=== PATIENT | female | born 1975 | race Caucasian/White ===

== ENCOUNTER 2017-06-30 17:46 | Emergency (ER) | payer SELFPAY ==
[2017-06-30 17:59] VITALS: BP 140/87; PULSE 88; RESP 18; TEMP 98.7; O2SAT 98
[2017-06-30] MEDS ORDERED: Naproxen 550 mg Tab PO STA (18:21)
--- NOTE | 2017-06-30 18:25 | ED PDOC ---
Arrival/HPI - General Chief Complaint: Dental Pain Time Seen by Provider: 06/30/17 17:54 Historian: Patient - History of Present Illness Narrative History of Present Illness (Text): 06/30/17 18:22 This 42 yo female with pmh dental pain, htn, allergic to Cleocin, presents to this ED c/o left lower dental pain, and facial swelling x 1 day. Patient denies sore throat, sob, cp, dysphagia, BAHENA, fever, or dizziness. Time/Duration: Other (see hpi) Context: Home Past Medical History - Provider Review Nursing Documentation Reviewed: Yes - Cardiac Hx Hypertension: Yes - Pulmonary Hx Asthma: Yes - Psychiatric Hx Substance Use: No - Anesthesia Hx Anesthesia: No Family/Social History - Physician Review Nursing Documentation Reviewed: Yes Family/Social History: Other (noncontributory) Smoking Status: Never Smoked Hx Alcohol Use: No Hx Substance Use: No Allergies/Home Meds Allergies/Adverse Reactions: Allergies Unobtainable Allergy (Verified 06/30/17 18:04) Review of Systems - Review of Systems Constitutional: Normal. absent: Fatigue, Weight Change, Fevers, Night Sweats Eyes: Normal ENT: Other (dental pain). absent: TMJ Pain, Voice Changes, Sore Throat, Rhinorrhea, Epistaxis, Sinus Congestion Respiratory: Normal. absent: SOB, Cough Cardiovascular: Normal Gastrointestinal: Normal Genitourinary Female: Normal Musculoskeletal: Normal Skin: Normal Neurological: Normal. absent: Headache, Dizziness Endocrine: Normal Hemo/Lymphatic: Normal Psychiatric: Normal Physical Exam Vital Signs Temp Pulse Resp BP Pulse Ox 06/30/17 17:58 98.7 F 88 18 140/87 98 Temperature: Afebrile Blood Pressure: Normal Pulse: Regular Respiratory Rate: Normal Appearance: Positive for: Well-Appearing, Non-Toxic, Comfortable Pain Distress: None Mental Status: Positive for: Alert and Oriented X 3 - Systems Exam Head: Present: Atraumatic, Normocephalic Pupils: Present: PERRL Extroacular Muscles: Present: EOMI Conjunctiva: Present: Normal Ears: Present: Normal, NORMAL TM Mouth: Present: Moist Mucous Membranes, Normal Lips, Normal Tounge, Other (Left lower posterior molar cavity. (+) mild tenderness over left lower premolar gum on palaption. No dental abscess. No facial erythema. (+) positive left submandibular reactive lyph node.). No: Drooling, Trismus Pharnyx: Present: Normal. No: ERYTHEMA, EXUDATE, TONSILS ENLARGED Neck: Present: Normal Range of Motion Upper Extremity: Present: Normal Inspection, Normal ROM Lower Extremity: Present: Normal Inspection, Normal ROM Neurological: Present: GCS=15, CN II-XII Intact, Speech Normal, Motor Func Grossly Intact, Normal Sensory Function, Normal Cerebellar Funct, Gait Normal, Memory Normal Skin: Present: Warm, Dry, Normal Color. No: Rashes Psychiatric: Present: Alert, Oriented x 3, Normal Insight, Normal Concentration Medical Decision Making ED Course and Treatment: 06/30/17 18:26 Re-evaluation. Patient feels better. Discussed results and plan with patient who expresses understanding. All questions answered and there is agreement with the plan to discharge home with instructions. Patient stable for discharge. Return if symptoms persist or worsen. Patient was recommended to f/u dentist in 1-2 days. Take medication with food as instructed. to return to emergency if symptoms worsen. Re-evaluation Time: 18:27 Reassessment Condition: Re-examined, Improved Disposition/Present on Arrival - Present on Arrival Any Indicators Present on Arrival: No History of DVT/PE: No History of Uncontrolled Diabetes: No Urinary Catheter: No History of Decub. Ulcer: No History Surgical Site Infection Following: None - Disposition Have Diagnosis and Disposition been Completed?: Yes Diagnosis: Infected dental caries, Pain, dental Disposition Time: 18:28 Patient Plan: Discharge Condition: GOOD Discharge Instructions (ExitCare): Dental Caries (ED), Toothache (ED) Additional Instructions: Call private doctor for follow up visit in 1-2 days. Also call dentist for revaluation in 1-2 days. take medication as instructed. Have your doctor recheck you blood pressure. return to emergency if symptoms worsen. Prescriptions: Amoxicillin [Amoxil 500 mg Cap] 500 mg PO TID #30 cap Chlorhexidine 0.12% [Peridex] 15 ml PO BID #1 bottle Famotidine [Pepcid] 40 mg PO DAILY #10 tablet Naproxen 500 mg PO BID PRN #14 tab PRN Reason: Pain, Severe (8-10) Referrals: [facility] [Outside] - Follow up with primary [facility] [Outside] - Follow up with primary Forms: [employer] (Lithuanian), WORK NOTE
== END 2017-06-30 18:45 | disposition home or self-care (01) ==
LOC: ED 17:46
DX: K02.9 Dental caries, unspecified (principal); I10 Essential (primary) hypertension

== ENCOUNTER 2017-11-23 21:19 | Emergency (ER) | payer SELFPAY ==
[2017-11-23 21:36] VITALS: TEMP 98
--- NOTE | 2017-11-23 21:53 | ED PDOC ---
Arrival/HPI - General Chief Complaint: Syncope Time Seen by Provider: 11/23/17 21:21 Historian: Patient - History of Present Illness Narrative History of Present Illness (Text): 11/23/17 21:47 42 year old female, with past medical history of hypertension, presents to the Emergency department accompanied by family complaining of witnessed syncopal episode at home prior to arrival. According to the family present, patient was upset at her daughters running after them when she collapsed and lost consciousness. When questioned as why patient was running, daughter states "it is family business and cannot say". Patient is currently awake.Patient with no chest pain or shortness of breath. Patient denies any fever, chills, nausea, vomiting, abdominal pain or any other complaints.No hx. of any SI or HI. Time/Duration: Prior to Arrival Symptom Onset: Gradual Symptom Course: Improving Activities at Onset: Other (Running) Context: Home Past Medical History - Provider Review Nursing Documentation Reviewed: Yes - Infectious Disease Hx of Infectious Diseases: None - Cardiac Hx Hypertension: Yes - Pulmonary Hx Asthma: Yes - Psychiatric Hx Substance Use: No - Anesthesia Hx Anesthesia: No Family/Social History - Physician Review Nursing Documentation Reviewed: Yes Family/Social History: No Known Family HX Smoking Status: Never Smoked Hx Alcohol Use: No Hx Substance Use: No Allergies/Home Meds Allergies/Adverse Reactions: Allergies clindamycin Allergy (Verified 11/23/17 21:35) ITCHING Home Medications: Home Meds Medication Instructions Recorded Confirmed No Known Home Med 11/23/17 11/23/17 Review of Systems - Physician Review All systems were reviewed & negative as marked: Yes - Review of Systems Constitutional: Normal. absent: Fevers Respiratory: Normal. absent: SOB Cardiovascular: Normal. absent: Chest Pain Gastrointestinal: Normal. absent: Abdominal Pain, Nausea, Vomiting Neurological: Other (possible syncope) Physical Exam Vital Signs Reviewed: Yes Vital Signs Temp Pulse Resp BP Pulse Ox 11/24/17 01:20 88 18 142/76 99 11/23/17 23:20 74 18 138/70 100 11/23/17 21:30 98.0 F 89 19 147/98 H 100 Temperature: Afebrile Blood Pressure: Hypertensive Pulse: Regular Respiratory Rate: Normal Appearance: Positive for: Well-Appearing Pain Distress: None Mental Status: Positive for: Alert and Oriented X 3 - Systems Exam Head: Present: Atraumatic, Normocephalic Pupils: Present: PERRL Extroacular Muscles: Present: EOMI Conjunctiva: Present: Normal Neck: Present: Normal Range of Motion Respiratory/Chest: Present: Clear to Auscultation, Good Air Exchange. No: Respiratory Distress, Accessory Muscle Use Cardiovascular: Present: Regular Rate and Rhythm, Normal S1, S2. No: Murmurs Abdomen: No: Tenderness, Distention, Peritoneal Signs Back: Present: Normal Inspection Upper Extremity: Present: Normal Inspection. No: Cyanosis, Edema Lower Extremity: Present: Normal Inspection. No: Edema Neurological: Present: GCS=15, CN II-XII Intact, Speech Normal, Motor Func Grossly Intact, Normal Sensory Function Skin: Present: Warm, Dry, Normal Color. No: Rashes Psychiatric: Present: Alert, Oriented x 3 Medical Decision Making ED Course and Treatment: 11/23/17 21:58 Impression: 42 year old female presents to the Emergency department s/p syncopal episode. Differential Diagnosis included but are not limited to: syncope Plan: -- CT of Head -- EKG -- Labs -- Chest X-ray -- Reassess and disposition Progress Notes: 11/23/17 21:58 EKG: Ordered, reviewed, and independently interpreted the EKG. Rate :87 BPM Rhythm : NSR Interpretation : No ST-segment elevations or depressions, no T-wave inversions, normal intervals. 11/24/17 01:15 CT of head reviewed by radiologist, shows: FINDINGS: Brain: No hemorrhage. No significant white matter disease. No edema. Ventricles: No hydrocephalus. Bones: Skull is intact. Sinuses: No acute sinusitis. Mastoid air cells: No mastoid effusion. IMPRESSION: No CT evidence of acute intracranial abnormality. 11/24/17 02:29 Leaving Against Medical Advice (AMA): The patient is choosing to leave against medical advice. I have personally explained to the patient that the risk in leaving given her syncopal episode include the possibility of underlying cardiac disease. I have discussed at great length that without further evaluation and monitoring there may be unforeseen circumstances and/or deterioration causing permanent bodily harm or as a result of their choice. The patient is alert, oriented, and shows the mental capacity to make clear decisions regarding the patients health care at this time. The patient continues to wish to leave against medical advice. Family present and aware of patient's decision. In light of the patients decision to leave against medical advice, follow-up has been arranged and the patient is aware of the importance to following up as instructed. The patient has been advised that they should return to the emergency room immediately if they change their mind at any time, or if their condition begins to change or worsen in any way. - Lab Interpretations Lab Results: 11/23/17 22:00 11/23/17 22:44 Lab Results 11/23/17 22:44: Sodium 145, Potassium 3.3 L, Chloride 108 H, Carbon Dioxide 23, Anion Gap 18, BUN 10, Creatinine 0.6 L, Est GFR ( Amer) > 60, Est GFR ( Non-Af Amer) > 60, Random Glucose 94, Calcium 9.2, Total Bilirubin 0.4, AST 19, ALT 28, Alkaline Phosphatase 54, Lactate Dehydrogenase 480, Total Creatine Kinase 87, Troponin I < 0.01, Total Protein 7.3, Albumin 4.2, Globulin 3.0, Albumin/Globulin Ratio 1.4 11/23/17 22:00: WBC 5.3, RBC 5.06, Hgb 13.0, Hct 38.1, MCV 75.3 L, MCH 25.7, MCHC 34.1, RDW 13.8, Plt Count 251, MPV 10.4 11/23/17 22:00: PT 13.5 H, INR 1.18 H, APTT 28.8 11/23/17 21:32: POC Glucose (mg/dL) 114 H - RAD Interpretation Radiology Orders: 11/23/17 21:33 HEAD W/O CONTRAST [CT] Stat CHEST PORTABLE [RAD] Stat Medical Receptionist: Radiologist - Medication Orders Current Medication Orders: Discontinued Medications Potassium Chloride (K-Dur 20 Meq Er Tab) 40 meq PO STAT STA Stop: 11/24/17 01:52 - Scribe Statement The provider has reviewed the documentation as recorded by the Barbi Batista. All medical record entries made by the Adalbertoibcarmen were at my direction and personally dictated by me. I have reviewed the chart and agree that the record accurately reflects my personal performance of the history, physical exam, medical decision making, and the department course for this patient. I have also personally directed, reviewed, and agree with the discharge instructions and disposition. Disposition/Present on Arrival - Present on Arrival Any Indicators Present on Arrival: No History of DVT/PE: No History of Uncontrolled Diabetes: No Urinary Catheter: No History of Decub. Ulcer: No History Surgical Site Infection Following: None - Disposition Have Diagnosis and Disposition been Completed?: Yes Diagnosis: Syncope Disposition: AGAINST MEDICAL ADVICE Disposition Time: 02:34 Condition: GOOD Discharge Instructions (ExitCare): Syncope (ED) Referrals: PCP,NO [Primary Care Provider] - Follow up with primary Forms: [employer] (Barbadian)
[2017-11-23 22:12] LABS: MEAN CELL VOLUME 75.3 fl (80.0-105.0); MEAN CORPUSCULAR HEMOGLOBIN 25.7 pg (25.0-35.0); MEAN CORPUSCULAR HGB CONC 34.1 g/dl (31.0-37.0); MEAN PLATELET VOLUME 10.4 fl (7.0-11.0); RBC 5.06 10^6/uL (3.5-6.1); RED CELL DISTRIBUTION WIDTH 13.8 % (11.5-14.5); WHITE BLOOD COUNT 5.3 10^3/ul (4.5-11.0)
[2017-11-23 23:05] LABS: INR 1.18 (0.93-1.08); PARTIAL THROMBOPLASTIN TIME 28.8 Seconds (25.1-36.5); PROTHROMBIN TIME 13.5 SECONDS (9.4-12.5)
[2017-11-23 23:11] LABS: ALB/GLOB RATIO 1.4 (1.1-1.8); ALBUMIN 4.2 g/dL (3.0-4.8); ALT/SGPT 28 U/L (7-56); AST/SGOT 19 U/L (14-36); BLOOD UREA NITROGEN 10 mg/dL (7-21); CALCIUM 9.2 mg/dL (8.4-10.5); GFR AFRICAN-AMERICAN > 60; GFR NON-AFRICAN AMERICAN > 60
[2017-11-23 23:21] LABS: TROPONIN I < 0.01 ng/mL
--- NOTE | 2017-11-24 00:47 | CT ---
EXAM: CT Head Without Intravenous Contrast CLINICAL HISTORY: 42 years old, female; Signs and symptoms; Syncope and collapse TECHNIQUE: Axial computed tomography images of the head/brain without intravenous contrast. All CT scans at this facility use one or more dose reduction techniques, viz.: automated exposure control; ma/kV adjustment per patient size (including targeted exams where dose is matched to indication; i.e. head); or iterative reconstruction technique. Coronal and sagittal reformatted images were created and reviewed. COMPARISON: No relevant prior studies available. FINDINGS: Brain: No hemorrhage. No significant white matter disease. No edema. Ventricles: No hydrocephalus. Bones: Skull is intact. Sinuses: No acute sinusitis. Mastoid air cells: No mastoid effusion. IMPRESSION: No CT evidence of acute intracranial abnormality.
[2017-11-24] MEDS ORDERED: Potassium Chloride 20 mEq ER Tab PO STA (01:51)
[2017-11-24 02:02] VITALS: BP 142/76; PULSE 88; RESP 18; O2SAT 99
--- NOTE | 2017-11-24 08:28 | RAD ---
HISTORY: syncope COMPARISON: No prior. FINDINGS: LUNGS: No active pulmonary disease. PLEURA: No significant pleural effusion identified, no pneumothorax apparent. CARDIOVASCULAR: Normal. OSSEOUS STRUCTURES: No significant abnormalities. VISUALIZED UPPER ABDOMEN: Normal. OTHER FINDINGS: None. IMPRESSION: No active disease.
--- NOTE | 2017-11-24 15:19 | CARD ---
APPROVED REPORT EKG Measurement Heart [id number] <Conclusion> Normal sinus rhythm Normal ECG
== END 2017-11-24 02:00 | disposition left against medical advice (07) ==
LOC: ED 21:19
DX: R55 Syncope and collapse (principal); I10 Essential (primary) hypertension